=== PATIENT | female | born 1955 | race Caucasian/White ===

== ENCOUNTER → 2017-08-01 15:47 | Outpatient (CLI) | payer BC, SELFPAY ==
--- NOTE | 2017-08-01 15:52 | HPBI_ITS ---
MAMMOGRAPHY - BILATERAL SCREENING REASON FOR EXAM: Female, 62 years old. Routine annual screening examination. PERTINENT HISTORY: Non-contributory. TECHNIQUE: Digital bilateral breast jackie (3D mammographic acquisition) in the CC and MLO projections. 2-D mediolateral oblique (MLO) and craniocaudad (CC) views of both breasts were obtained. CAD: Full Field Digital Mammography with Computer Added Detection was performed. COMPARISON: Comparison is made with prior study dated May 09, 2014 and March 06, 2013. FINDINGS: Breast Composition: The breasts are heterogeneously dense, which may obscure small masses. There are no dominant masses or suspicious calcifications. No other significant abnormalities are identified. There has been no significant change since the prior study. HPBI/SCREENING MAMM (CAD), BILAT IMPRESSION: Stable bilateral screening mammogram. Yearly follow-up mammogram recommended. (A) ASSESSMENT CATEGORY: BIRADS Category 1: Negative. A letter regarding these results will be sent to the patient by the facility within 30 days. Approximately 10% of breast cancers are not detected by mammography. A normal mammogram should not delay biopsy of a clinically suspicious abnormality. [id number] Electronically Signed: Ant De La Vega MD at 8:34 EST Tel [phone], Service support ,
== END ==
DX: Z12.31 Encounter for screening mammogram for malignant neoplasm of breast (principal)
CPT/HCPCS: 77063; 77067

== ENCOUNTER → 2018-11-22 | Outpatient (CLI) | payer BC, SELFPAY ==
--- NOTE | 2018-11-22 14:50 | BI_ITS ---
MAMMOGRAPHY - BILATERAL SCREENING REASON FOR EXAM: Female, 63 years old. Routine annual screening examination. PERTINENT HISTORY: Non-contributory. TECHNIQUE: Digital bilateral breast zaki (3D mammographic acquisition) in the CC and MLO projections. 2-D mediolateral oblique (MLO) and craniocaudad (CC) views of both breasts were obtained. CAD: Full Field Digital Mammography with Computer Added Detection was performed. COMPARISON: Comparison is made with prior study dated August 01, 2017 and May 09, 2014. FINDINGS: Breast Composition: The breasts are heterogeneously dense, which may obscure small masses. There are no dominant masses or suspicious calcifications. Small bilateral benign appearing axillary lymph nodes. No other significant abnormalities are identified. There has been no significant change since the prior study. BI/SCREEN MAMM (CAD) W/ZAKI BILAT IMPRESSION: Stable bilateral screening mammogram. Yearly follow-up mammogram recommended. (A) ASSESSMENT CATEGORY: BIRADS Category 2: Benign. A letter regarding these results will be sent to the patient by the facility within 30 days. Approximately 10% of breast cancers are not detected by mammography. A normal mammogram should not delay biopsy of a clinically suspicious abnormality. [id number] Electronically Signed: Ant De La Vega, at 15:50 EDT , Service support ,
== END | disposition home or self-care (01) ==
DX: Z12.31 Encounter for screening mammogram for malignant neoplasm of breast (principal)
CPT/HCPCS: 77063; 77067

== ENCOUNTER 2020-08-28 15:54 | Outpatient (RCR) | payer OTHER, SELFPAY ==
[2020-08-28] MEDS: COVID-19 VACC, MRNA(PFIZER)/PF 30 MCG/0.3 ML SYRINGE IM (17:34)
[2020-09-18] MEDS: COVID-19 VACC, MRNA(PFIZER)/PF 30 MCG/0.3 ML SYRINGE IM (17:08)
== END 2020-11-25 23:59 ==
LOC: IMMUN 15:54
PROVIDERS: Visit Provider Family Medicine
DX: Z23 Encounter for immunization (principal)
CPT/HCPCS: 0001A; 0002A; 91300

== ENCOUNTER 2020-12-02 00:58 | Emergency (ER) | payer OTHER, SELFPAY ==
[2020-12-02 00:59] VITALS: BP 169/84; PULSE 89; RESP 18; TEMP 37.1; O2SAT 98; BMI 27.0
--- NOTE | 2020-12-02 01:20 | CT_ITS ---
STUDY: CT ABDOMEN AND PELVIS WITHOUT CONTRAST REASON FOR EXAM: Female, 65 years old. Bilateral flank pain, nonreproducible RADIATION DOSAGE (If Supplied By Facility): CTDIvol = ( ) mGy, DLP = ( ) mGycm TECHNIQUE: Transaxial images were obtained from the dome of the diaphragm to the symphysis pubis without oral contrast, and without intravenous contrast. Sagittal and coronal images were reconstructed. Individualized dose optimization techniques were used for this CT. COMPARISON: None. FINDINGS: Left basilar platelike atelectasis versus linear scar. Mild cardiomegaly. Unremarkable liver, spleen, pancreas, and adrenals on this unenhanced study. No radiopaque urolithiasis or hydroureteronephrosis on either side. No definite cholelithiasis. Normal appendix. Bowel loops nonobstructed. Apparent mild circumferential wall thickening of the descending and transverse colon noted, nonspecific. No free air or free fluid. Vascular calcification with no abdominal aortic aneurysm. No definite adenopathy. Sections through the pelvis demonstrate no adnexal mass. The urinary bladder is incompletely distended. Multilevel thoracolumbar spondylosis is seen. There is old compression fracture and anterior wedging of L2. Chronic minimal retrolisthesis of L2 on L3 noted. Osteoarthritis of the bilateral hip joints. CT/Abdomen/Pelvis without Cont IMPRESSION: No radiopaque urolithiasis or hydroureteronephrosis on either side. Normal appendix. Apparent mild circumferential wall thickening of the transverse and descending colon, due to incomplete distention or infectious/inflammatory colitis Electronically Signed: Glenroy Neal MD at 2:12 EDT Tel , Service support ,
[2020-12-02 01:27] LABS: Bacteria 0 SEEN /hpf (None Seen); Mucous, Urine 0 SEEN /hpf (<or=2+); White Blood Cells 0 SEEN /hpf (0-5)
[2020-12-02] MEDS: Ketorolac 15 MG/ML Vial IV (01:27)
[2020-12-02 01:28] LABS: Color, Urine Yellow (Yellow); Glucose, Dipstick Normal (Normal); Ketone-Dipstick Negative (Negative); Leukocyte Esterase-Dipstick Negative /ul (Negative); Nitrite-Dipstick Negative (Negative); Occult Blood-Urine 250 /ul (Negative); Protein-Dipstick 30 mg/dl (Negative); Specific Gravity, Urine 1.025 (1.002-1.030); Urine Bilirubin Dipstick Negative (Negative); Urine Clarity Clear (Clear); Urine Urobilinogen Normal (Normal)
[2020-12-02 01:28] LABS: Absolute Lymphocyte Count 1.21 X10^3/uL (0.83-4.51); Basophil# 0.04 X10^3/uL; Eosinophil# 0.05 X10^3/uL; Eosinophils% 1.2 % (0-5); Hematocrit 40.4 % (37-47); Hemoglobin 13.3 g/dL (12.0-15.0); Lymphocyte # 1.21 X10^3/ul (0.83-4.51); Lymphocyte % 29.8 % (19-41); Mean Corp Hgb Conc 32.9 g/dL (32-36); Mean Corpuscular Hgb 30.4 pg (27.0-32.0); Mean Corpuscular Volume 92.4 fL (81-99); Mean Platelet Vol. 11.4 fl (6.2-12.0); Monocyte# 0.73 X10^3/uL; NRBC Flagged by Analyzer 0 % (0-5); Neutrophil # 2.01 X10^3/uL (2.7-7.7); Neutrophil % 49.5 % (47-70); Platelet Count 149 K/mm3 (150-450); RBC Distribution Width CV 13.1 % (11.6-14.6); RBC Distribution Width SD 44.6 fl (35.1-43.9); Red Blood Count 4.37 M/mm3 (4.2-5.4); White Blood Count 4.1 K/mm3 (4.4-11.0)
[2020-12-02 01:32] LABS: Red Blood Cells-Urine 5-10 SEEN /hpf (0-5); Squamous Epithelial Cells - UA 0-5 SEEN /hpf (5-10)
[2020-12-02 01:41] LABS: ALB/GLOB Ratio 1.1 RATIO (0.9-2.4); AST(SGOT) 22 U/L (15-37); Alanine Aminotransfer ALT/SGPT 32 U/L (13-56); Albumin, Serum 3.7 g/dL (3.2-5.0); Alkaline Phosphatase 81 U/L (45-117); Anion Gap 9 (5-15); BUN 10 mg/dL (7-18); BUN/Creat Ratio 12.5 RATIO (10-20); Chloride 99 mmol/L (98-107); EST Glomerular Filtration Rate 77 mL/min (>60); Est Glom Filt Rate - Afr Amer 93 mL/min (>60); Globulin 3.4 g/dL (2.2-4.2); Glucose 121 mg/dL (74-106); Potassium 3.4 mmol/L (3.5-5.1); Protein, Total 7.1 g/dL (6.4-8.2); Sodium Level 135 mmol/L (136-145)
--- NOTE | 2020-12-02 02:20 | EDS_ITS ---
HPI History of Present Illness Chief Complaint: Flank Pain Informant: patient Narrative Narrative: Patient is a 65-year-old female who presents to the emergency department for bilateral flank pain. She states that this started this past Tuesday. She currently rates the pain is a 5 out of 10. She is been taking Aleve for it which does not give much relief. She does not know any aggravating or relieving factors. The pain is just constantly there. She is never had this before. It does wrap around the sides bilaterally. No significant abdominal pain. She denies any urinary symptoms. No change in moving bowels. No nausea/vomiting. She denies any fevers or chills. No chest pain or shortness of breath. [facility] Medical History (Updated 12/02/20 @ 02:[address] Ash Sepulveda DO) Herniated cervical disc History of shingles Home Medications naproxen [Naprosyn] 500 mg PO BID PRN #20 tab 12/02/20 [Rx Last Taken Unknown] Allergy/AdvReac Type Severity Reaction Status Date / Time No Known Allergies Allergy Verified 12/02/20 00:59 Social History Smoking Status: Current every day smoker tobacco type: cigarettes ROS ROS ED Constitutional Constitutional ED: Denies chills or fever(s) Eyes Eyes: Denies change in vision ENT ENT ED: Denies epistaxis or rhinorrhea Cardiovascular Cardiovascular: Denies chest pain or palpitations Respiratory/Chest Respiratory/Chest: Denies cough, dyspnea or dyspnea on exertion Gastrointestinal Gastrointestinal: Denies abdominal pain, diarrhea, nausea or vomiting Genitourinary Genitourinary ED: Reports flank pain; Denies dysuria, hematuria or urinary frequency Musculoskeletal Musculoskeletal: Reports back pain; Denies neck pain Integumentary Denies rash Neurologic Neurologic: Denies dizziness, headache(s) or weakness EXAM Physical Exam Const Vital Signs: 12/02/20 00:59 12/02/20 01:01 Temperature 98.7 F Temperature Source Oral Pulse Rate 89 Respiratory Rate 18 Respiratory Effort Normal Non-Labored Blood Pressure 169/84 H Blood Pressure Mean 112 Pulse Ox 98 Oxygen Delivery Method Room Air Positive well nourished and well developed General Appearance ED: well developed and NAD HEENT Reports normocephalic, head/scalp atraumatic and moist mucous membranes Eyes PERRL and EOMs intact bilaterally Neck supple General: Negative for tenderness Chest Wall inspection of chest normal Resp normal respiratory effort and clear to auscultation bilaterally Auscultation: Negative for rales, rhonchi or wheezes Cardio regular rate, regular rhythm and no murmurs GI normal to inspection, nondistended, normoactive bowel sounds and non-tender Palpation: soft; Negative for guarding or rebound tenderness present Back/Spine no CVA tenderness Extremity normal to inspection General Extremety ED: Negative for edema or tenderness General Extremity: Negative for edema Neuro CN's II-XII intact bilaterally and no sensory deficits noted Sensorium / Orientation: alert Motor Exam: strength 5/5 throughout Psych mental status grossly normal Skin no rashes or lesions noted MDM MDM MDM Narrative Medical decision making narrative: Patient presents to the ED for nontraumatic bilateral flank pain. Upon arrival to the emergency department she is mildly hypertensive but otherwise normal vital signs. She is a benign physical exam. No reproducible pain. Basic lab work is obtained to evaluate kidney function as well as urinalysis to evaluate for infection. CT scan was obtained. She is given a dose of Toradol for symptomatic treatment. Patient's lab work-up did not reveal a significant acute abnormality. Her urine did show blood. CT scan did not show any obvious obstructing stone. There was some mild wall thickening of the colon. There is also a chronic L2 compression fracture. Patient was not aware of this previously. Patient symptoms could s tem from either of these issues. This time will recommend symptomatic treatment. She is to follow-up with her PCP. Return precautions are reviewed with her including developing any systemic symptoms including fever/chills, bloody bowel movements, worsening pain. She understands and is agreeable this plan. Discharged home in stable condition. She otherwise is to follow-up with her PCP. All questions were answered. Lab Data Labs: Laboratory Results - last 24 hr 12/02/20 12/02/20 12/02/20 01:00 01:05 01:05 WBC 4.1 L RBC 4.37 Hgb 13.3 Hct 40.4 MCV 92.4 MCH 30.4 MCHC 32.9 RDW Std Deviation 44.6 H RDW Coeff of [place] 13.1 Plt Count 149 L MPV 11.4 Immature Gran % (Auto) 0.500 Neut % (Auto) 49.5 Lymph % (Auto) 29.8 [place] % (Auto) 18.0 H Eos % (Auto) 1.2 Baso % (Auto) 1.0 Absolute Neuts (auto) 2.0 Absolute Lymphs (auto) 1.21 Nucleated RBC % 0 Sodium 135 L Potassium 3.4 L Chloride 99 Carbon Dioxide 27.0 Anion Gap 9 BUN 10 Creatinine 0.80 Estim Creat Clear Calc 79.40 Est GFR (MDRD) Af Amer 93 Est GFR (MDRD) Non-Af 77 BUN/Creatinine Ratio 12.5 Glucose 121 H Calcium 9.0 Total Bilirubin 0.30 AST 22 ALT 32 Alkaline Phosphatase 81 Total Protein 7.1 Albumin 3.7 Globulin 3.4 Albumin/Globulin Ratio 1.1 Urine Color Yellow Urine Clarity Clear Urine pH 5.0 Ur Specific [place] 1.025 Urine Protein 30 H Urine Glucose (UA) Normal Urine Ketones Negative Urine Occult Blood 250 H Urine Nitrite Negative Urine Bilirubin Negative Urine Urobilinogen Normal Ur Leukocyte Esterase Negative Urine RBC 5-10 SEEN Urine WBC 0 SEEN Ur Squamous Epith Cells 0-5 SEEN Urine Bacteria 0 SEEN Urine Mucus 0 SEEN Radiography Diagnostic Testing: Radiology Impression Abdomen/Pelvis CT 12/02/20 01:20 IMPRESSION: No radiopaque urolithiasis or hydroureteronephrosis on either side. Normal appendix. Apparent mild circumferential wall thickening of the transverse and descending colon, due to incomplete distention or infectious/inflammatory colitis Electronically Signed: Glenroy Neal MD at 2:12 EDT Tel , Service support , Discharge Plan Triage Chief Complaint: Flank Pain ED Provider: Ash Sepulveda Dx/Rx/DC Orders Clinical Impression: Back pain, Hematuria Instructions: ED Flank Pain, Uncertain Cause Prescriptions: New naproxen [Naprosyn] 500 mg tablet 500 mg PO BID PRN (Reason: pain) Qty: 20 RF: 0 Primary Care Provider: Care Physician,No Primary Referrals: Care Physician,No Primary [Primary Care Provider] - 1-2 Days if not improving Disposition Disposition: Home, self care Discharge Date/Time: 12/02/20 02:58
[2020-12-02] MEDS: HYDROcodone Bitartrate/Apap 5/325 Tablet PO (02:53)
== END 2020-12-02 02:58 | disposition home or self-care (01) ==
PROVIDERS: Emergency Provider Emergency Medicine
DX: R10.9 Unspecified abdominal pain (principal); M54.9 Dorsalgia, unspecified; R31.9 Hematuria, unspecified; I10 Essential (primary) hypertension; F17.210 Nicotine dependence, cigarettes, uncomplicated; Z79.1 Long term (current) use of non-steroidal anti-inflammatories (NSAID)
CPT/HCPCS: 74176; 80053; 81001; 85025; 96374; 99284; A4216

== ENCOUNTER 2020-12-06 04:28 | Emergency (ER) | payer OTHER, SELFPAY ==
[2020-12-06 04:28] VITALS: BP 161/79; PULSE 78; RESP 18; TEMP 36.8; O2SAT 99; BMI 24.4
--- NOTE | 2020-12-06 05:02 | EX.ED.DYSGE1 ---
HPI History of Present Illness Chief Complaint: Flank Pain Narrative Narrative: 65-year-old female presenting with back pain. She states it is on the right side mostly but sometimes is on the left. She states that this feels like shingles she had when she was younger. She has no rash. She is not had any constipation or diarrhea. She recently had a CT scan and blood work which was normal. She states that when she is up moving around all day she said she moves just fine and has no symptoms. She has pain when she lays down at night. She denies any paresthesias. [facility] Medical History Herniated cervical disc History of shingles Home Medications naproxen [Naprosyn] 500 mg PO BID PRN #20 tab 12/02/20 [Rx Last Taken Unknown] famciclovir 500 mg PO Q8H #21 tab 12/06/20 [Rx Last Taken Unknown] prednisone 50 mg PO DAILY 5 Days #5 tab 12/06/20 [Rx Last Taken Unknown] Allergy/AdvReac Type Severity Reaction Status Date / Time No Known Allergies Allergy Verified 12/02/20 00:59 Social History Smoking Status: Current every day smoker tobacco type: cigarettes ROS ROS ED Constitutional Constitutional ED: Denies chills, fever(s) or sweats Eyes Eyes: Denies blurry vision or change in vision ENT ENT ED: Denies ear pain, rhinorrhea or sore throat Cardiovascular Cardiovascular: Denies chest pain, palpitations or racing heartbeat Respiratory/Chest Respiratory/Chest: Denies cough, dyspnea or sputum Gastrointestinal Gastrointestinal: Denies abdominal pain, constipation, diarrhea or vomiting Genitourinary Genitourinary ED: Denies dysuria, hematuria or urinary frequency Musculoskeletal Musculoskeletal: Reports other Details: Back pain ; Denies arthralgias, myalgias or neck pain Integumentary Denies abscess, Abrasions or rash Neurologic Neurologic: Denies headache(s), paresthesias or weakness Psychiatric Psychiatric: Denies anxiety, depression, suicidal ideation or suicidal thoughts Endocrine Endocrinology: Denies polydipsia or polyuria EXAM Physical Exam Const Vital Signs: 12/06/20 04:28 12/06/20 04:31 Temperature 98.3 F Temperature Source Oral Pulse Rate 78 Respiratory Rate 18 Respiratory Effort Normal Respiratory Pattern Normal Blood Pressure 161/79 H Blood Pressure Mean 106 Pulse Ox 99 Oxygen Delivery Method Room Air Positive well nourished and no apparent distress General Appearance ED: Negative for pallor HEENT Reports normocephalic, head/scalp atraumatic and moist mucous membranes Eyes PERRL and EOMs intact bilaterally Resp normal respiratory effort and clear to auscultation bilaterally Auscultation: Negative for rales, rhonchi or wheezes Cardio regular rate and regular rhythm GI normal to inspection, nondistended, normoactive bowel sounds and non-distended Palpation: soft Narrative: Deferred Back/Spine no CVA tenderness Lumbar Spine / Lower Back: paraspinal muscle tenderness right and left Extremity normal to inspection General Extremety ED: Yes edema and tenderness General Extremity: edema Neuro oriented x3 and CN's II-XII intact bilaterally Sensorium / Orientation: alert Motor Exam: strength 5/5 throughout Psych mental status grossly normal Attitude: No agitated Skin no rashes or lesions noted and no wounds General Skin Exam: Negative for jaundice or pallor MDM MDM MDM Narrative Medical decision making narrative: Patient presenting with back pain. She has had this all week. It has not changed in nature. She is already had lab work and imaging done. She does not have any red flag signs or symptoms. She has no change in bowel habits. No urinary complaints. She states that the pain is even present when she is up moving around in the day it only hurts at night. She states that she was given tramadol and this did not help. She is insistent that this is early shingles. I do not see any rash, but she is insistent it feels just like her previous shingles. Therefore since this is her second visit I will just treat her as shingles. Impression: 1. Back pain Discharge Plan Triage Chief Complaint: Flank Pain ED Provider: Mina Kilgore Dx/Rx/DC Orders Instructions: ED Flank Pain, Uncertain Cause Prescriptions: New famciclovir 500 mg tablet 500 mg PO Q8H Qty: 21 RF: 0 prednisone 50 mg tablet 50 mg PO DAILY 5 Days Qty: 5 RF: 0 No Action naproxen [Naprosyn] 500 mg tablet 500 mg PO BID PRN (Reason: pain) Qty: 20 RF: 0 Primary Care Provider: Reina Puri Referrals: Reina Puri MD [Primary Care Provider] - Disposition Disposition: Home, self care
[2020-12-06] MEDS: predniSONE 20 MG Tablet 60 MG PO (05:31)
[2020-12-06] MEDS: Lidocaine 5% Patch 1 PATCH TOPICAL (05:32)
== END 2020-12-06 05:45 | disposition home or self-care (01) ==
LOC: ED 05:27
PROVIDERS: Emergency Provider Student in an Organized Health Care Education/Training Program; PCP Internal Medicine
DX: M54.9 Dorsalgia, unspecified (principal); F17.210 Nicotine dependence, cigarettes, uncomplicated; Z79.1 Long term (current) use of non-steroidal anti-inflammatories (NSAID); Z79.52 Long term (current) use of systemic steroids
CPT/HCPCS: 99284